=== PATIENT | male | born 1995 | race Caucasian/White ===

== ENCOUNTER 2017-10-21 21:32 | Emergency (ER) | payer OTHER ==
[2017-10-21] MEDS ORDERED: Bacitracin Oint 1 GM U/D Packet TOP ONE (21:41)
[2017-10-21] MEDS ORDERED: Sodium Chloride 0.9% 1,000 ML IV ONE (21:41)
[2017-10-21] MEDS ORDERED: Diphtheria,Pertussis(Acell),Tetanus Vaccine 0.5 ML Syringe IM ONE (21:41)
[2017-10-21] MEDS ORDERED: Sodium Chloride 0.9% 10 ML Syringe FLUSH PRN (21:41)
[2017-10-21] MEDS ORDERED: Sodium Chloride 0.9% 2.5 ML Syringe FLUSH PRN (21:41)
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
[2017-10-21 21:52] VITALS: BP 137/79
[2017-10-21 22:20] LABS: CHLORIDE,CL 106 mmol/L (98-107); SODIUM,NA 140 mmol/L (136-148)
[2017-10-21] MEDS ORDERED: Ketorolac 30 MG/ML SDV IVPUSH ONE (23:30)
[2017-10-21] MEDS ORDERED: Ketorolac 30 MG/ML SDV ONE (23:32)
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
== END 2017-10-22 00:05 | disposition home or self-care (01) ==
LOC: MW.ED 21:32
DX: S81.021A Laceration with foreign body, right knee, initial encounter (principal); S00.83XA Contusion of other part of head, initial encounter; V57.5XXA Driver of pick-up truck or van injured in collision with fixed or stationary object in traffic accident, initial encounter
CPT/HCPCS: 36415; 70450; 70486; 71045; 72125; 72170; 73562; 80053; 83690; 85025; 85610; 90471; 90715; 96361; 96374; 99285; G0390; G0480; J1885; J7040; 99284